=== PATIENT | male | born 1980 | race Caucasian/White ===

== ENCOUNTER 2022-01-21 21:21 | Observation (INO) | payer BC, SELFPAY ==
--- NOTE | ~2022-01-21 | XR_ITS ---
EXAMINATION: XR chest 1V portable Exam Date/Time: 01/21/2022 21:45 CDT CLINICAL HISTORY: INCREASED HR,SOB, TODAY Comparison: 09/25/2019. RESULT: Lines, tubes, and devices: None. Lungs and pleura: Clear. Cardiomediastinal silhouette: Stable cardiomediastinal silhouette. Other: No acute osseous or upper abdominal finding. IMPRESSION: No acute cardiopulmonary process Reviewed, dictated and finalized at location K.
[2022-01-21 21:22] VITALS: BP 181/89; PULSE 118; RESP 18; TEMP 36.3; O2SAT 98
--- NOTE | 2022-01-21 21:23 | ECG_ITS ---
Measurements Intervals [place] Rate: 132 P: [place]: 0 QRS: 83 QRSD: 87 T: -14 QT: 278 QTc: 412 Interpretive Statements ATRIAL FIBRILLATION WITH RAPID VENTRICULAR RESPONSE NONSPECIFIC ST & T-WAVE ABNORMALITY Electronically Signed On 01-22-2022 11:11:17 CDT by Flako Madrid M.D.
--- NOTE | 2022-01-21 21:40 | PC.NURSE ---
vrbo cardizem 10mg iv push x 1 dose.
[2022-01-21] MEDS: dilTIAZem HCl INJ 25 MG/5 ML VIAL 10 MG IV PUSH (21:42)
--- NOTE | 2022-01-21 21:45 | ED.ARRPALP ---
HPI - Arrhythmia/Palpitations General Chief Complaint: Arrhythmia/Palpitations Stated Complaint: hr fast x 20 min. Time Seen by Provider: 01/21/22 21:32 Source: patient and family Mode of arrival: ambulatory Limitations: no limitations History of Present Illness HPI narrative: 41-year-old male with no significant past medical history presented to the emergency department for evaluation of a rapid heart rate. Patient states he was at home and had just finished cleaning the basement when he had onset of rapid heart rate. Patient did have some dizziness and lightheadedness associated with it. Patient denied any chest pain. Patient has no prior history of atrial fibrillation. Patient states that he has had intermittent racing heart rate but that is usually short lasting and has never had any work-up for this. Patient denies any prior cardiac history. She denies any change in medications. Patient states he does drink caffeine in the morning but had no increased caffeine intake today. Patient denies taking any energy drinks. Patient denies any recreational drug use. Related Data Home Medications Medication Instructions Recorded Confirmed No Home Medications 01/21/22 01/21/22 Allergies Allergy/AdvReac Type Severity Reaction Status Date / Time No Known Allergies Allergy Verified 01/22/22 01:28 Review of Systems Review of Systems: CONSTITUTIONAL: Denies fever, chills, or sweats. EYES: Denies visual changes, redness, or discharge. ENT: Denies rhinorrhea, congestion, sore throat, or otalgia. CARDIOVASCULAR: Heart palpitations RESPIRATORY: Denies cough or dyspnea. GASTROINTESTINAL: Denies abdominal pain, nausea, vomiting, or diarrhea. GENITOURINARY: Denies dysuria or hematuria. SKIN: Denies rash or itching. MUSCULOSKELETAL: Denies back pain, joint pain, or myalgia. NEUROLOGIC: Associated dizziness and lightheadedness All systems reviewed & are unremarkable except as noted in HPI and below PMFSH Family History Family History Father Family history of heart disease in male family member before age 55 Hypertension TIA (transient ischemic attack) Social History Social History Smoking packs per day: 0.5 Smoking cigarettes per day: 10.0 Years smoked: 2 Smoking pack-years: 1.00 Smoking status: Former smoker Tobacco type: cigarettes Alcohol intake: never Substance use: former Substance use type: marijuana Last use: 20 years ago Spiritual care concerns: No Exam Narrative: APPEARANCE: Well appearing, no pain, no distress, well-nourished. HEAD: normocephalic, atraumatic. EYES: PERRLA/EOMI, conjunctivae clear. NOSE: Normal no drainage RESPIRATORY: Airway patent, respirations nonlabored. Clear to auscultation bilaterally, no rales, rhonchi, wheezing. CARDIOVASCULAR: Atrial fibrillation with RVR heart rate of 130s ABDOMINAL: Soft, nontender, nondistended, normal bowel sounds MUSCULOSKELETAL: Moves all extremities. Strength/ROM intact, No edema, No calf tenderness. NEURO: Alert. Cranial nerves II through XII intact. Grossly intact SKIN: Warm, dry. Normal Color PSYCHIATRIC: Anxious in appearance Course Course Emergency Course: Patient was started on Cardizem bolus of 10 mg and was started on a 5 mg/h Cardizem infusion. Patient was also treated with 1 L of normal saline. Patient was observed in the emergency department but did not convert back to normal sinus rhythm. Case was discussed with the hospitalist and patient was admitted to the IMU. Patient and family were updated on the results of the work-up and plan for admission. All questions and concerns were addressed. Patient was stable at time of admission. Vital Signs Vital signs: Vital Signs Temperature 97.4 F L 01/21/22 21:22 Pulse Rate 118 H 01/21/22 21:22 Respiratory Rate 18 01/21/22 21:22 Blood Pressure 181/89 H 01/21/22 21:22 Pulse Oximetry 98 01/21/22 21:22 Temper
[2022-01-21 21:53] LABS: Basophils Absolute Auto 0.1 K/mm3 (0.0-0.1); Basophils Percent Auto 0.6 % (0.2-1.2); Eosinophils Absolute Auto 0.4 K/mm3 (0-0.3); Eosinophils Percent Auto 5.1 % (0-4.4); Hematocrit 49.1 % (42.0-52.0); Hemoglobin 16.3 g/dL (14.0-18.0); Immature Granulocyte Absolute 0.03 K/mm3 (0.00-0.031); Immature Granulocyte Percent A 0.4 % (0-0.5); Lymphocytes Absolute Auto 2.66 K/mm3 (0.9-3.2); Lymphocytes Percent Auto 31.5 % (18.3-44.2); Mean Corpuscular HGB Conc 33.2 g/dl (32-36); Mean Corpuscular Hemoglobin 29.8 pg (26-34); Mean Corpuscular Volume 89.8 fl (80-100); Mean Platelet Volume 9.6 fl (7.4-10.4); Monocytes Absolute Auto 0.5 K/mm3 (0.1-0.6); Monocytes Percent Auto 5.9 % (2.6-8.5); Neutrophils Absolute Auto 4.8 K/mm3 (1.3-6.7); Neutrophils Percent Auto 56.5 % (45.5-73.1); Platelet Count Result 230 k/mm3 (150-375); Red Blood Count 5.47 M/mm3 (4.6-6.20); Red Cell Distribution Width 12.2 % (11.5-14.5); White Blood Count 8.4 K/mm3 (4.5-10.0)
[2022-01-21 22:04] LABS: Alanine Aminotransferase 25 U/L (4-50); Alkaline Phosphatase 105 U/L (38-126); Anion Gap 10 mmol/L (8-16); Aspartate Amino Transferase 38 U/L (17-59); Bilirubin,Total 0.4 mg/dL (0.2-1.3); Blood Urea Nitrogen 19 mg/dL (9-20); Calcium 9.4 mg/dL (8.4-10.2); Carbon Dioxide 26 mmol/L (22-30); Chloride 103 mmol/L (98-107); Estimated CRCL calculation 86 ml/min; Estimated Glomerular Filt Rate > 60; Glucose 112 mg/dL (65-110); Lipase 133 U/L (23-300); Potassium 3.9 mmol/L (3.4-5.0); Sodium 139 mmol/L (137-145)
[2022-01-21 22:05] LABS: Prothrombin Time 12.4 Seconds (11.1-14.7)
[2022-01-21 22:06] LABS: Partial Thromboplastin Time 26.1 SECONDS (22.3-36.8)
[2022-01-21 22:14] LABS: Troponin I < 0.012 ng/mL (0.000-0.034)
[2022-01-21 22:34] VITALS: BP 134/90; PULSE 109
[2022-01-21] MEDS: dilTIAZem 100 MG/100 ML 100 MG/100 ML BAG IV CONT (22:34)
[2022-01-22] VITALS (14 sets, daily range): BP systolic 129–146; BP diastolic 66–107; PULSE 63–93; RESP 12–18; TEMP 36.3–36.9; O2SAT 96–100; BMI 23.8
--- NOTE | 2022-01-22 | ECHO_ITS ---
Patient Info Name: Narendra Shipley Age: 41 years : 1980 Gender: Male Ht: 72 in Wt: 175 lbs BSA: 2.01 m2 HR: 65 bpm BP: 129 / 83 mmHg Heart Rhythm: Sinus Rhythm Exam Date: 01/22/2022 9:26 AM Exam Location: [facility] Pulmonary Patient Status: Inpatient Admit Date: 01/21/2022 Staff Ordering Physician: Tiffanie Cordon DO Continuous Vulcanizing Machine Operator: José Miguel Pérez RDCS, RT Attending Provider: Tiffanie Cordon DO Referring Physician: Bravo TATUM; Exam Type: CA echo doppler color flow Study Info Indications I48.0 - Paroxysmal atrial fibrillation Complete two-dimensional, color flow and Doppler transthoracic echocardiogram is performed. Strain analysis performed. Summary 1. Complete two-dimensional, color flow and Doppler transthoracic echocardiogram is performed. 2. Left ventricular chamber dimension is normal. 3. Left ventricular systolic function is normal, estimated at 60-65%. 4. There is no increased left ventricular wall thickness. 5. Global longitudinal strain is borderline at -18 %. 6. The left ventricular diastolic function is normal. 7. There is trace mitral valve regurgitation. 8. There is no aortic valve stenosis. Left Ventricle Left ventricular chamber dimension is normal. Left ventricular systolic function is normal, estimated at 60-65%. There is no increased left ventricular wall thickness. The left ventricular diastolic function is normal. Global longitudinal strain is borderline at -18 %. Right Ventricle Right ventricular chamber dimension is normal. Right ventricular systolic function is normal. Left Atria Left atrial chamber dimension is normal. Right Atria Right atrial chamber dimension is normal. Aortic Valve The aortic valve is probable trileaflet. There is no aortic valve stenosis. There is no aortic valve regurgitation. Pulmonic Valve The pulmonic valve is not well visualized. There is trace pulmonic regurgitation. Mitral Valve The mitral valve has normal leaflets. There is trace mitral valve regurgitation. Tricuspid Valve The tricuspid valve leaflets are normal. There is trace tricuspid valve regurgitation. Unable to estimate PA systolic pressure due to poor spectral resolution of tricuspid regurgitant jet velocity. Pericardium/Pleural The pericardium appears normal. There is no pericardial effusion. Inferior Vena Cava Normal inferior vena cava with >50% collapse upon inspiration consistent with normal right atrial pressure, 5 mmHg. Aorta The aortic root size at the sinus of Valsalva is normal. Left Ventricular Outflow Tract Name Value Normal LVOT 2D LVOT Diameter 2.0 cm LVOT Doppler LVOT Peak Gradient 4 mmHg LVOT Mean Gradient 2 mmHg LVOT VTI 19 cm LVOT VTI/AV VTI Ratio 0.8 LVOT Stroke Volume 61 ml LVOT CO 4.3 l/min LVOT CI 2.1 l/min/m2 Mitral Valve
--- NOTE | 2022-01-22 00:59 | ECG_ITS ---
Measurements Intervals [place] Rate: 93 P: [place]: 0 QRS: 71 QRSD: 93 T: 8 QT: 320 QTc: 398 Interpretive Statements ATRIAL FIBRILLATION Electronically Signed On 01-22-2022 11:12:46 CDT by Flako Madrid M.D.
[2022-01-22 01:04] LABS: Troponin I < 0.012 ng/mL (0.000-0.034)
--- NOTE | 2022-01-22 01:20 | ADMGEN ---
This patient, Narendra Shipley, was admitted to IMU Room 212-01 on 01/22/22 at 0106. Patient/family oriented to hospital policies and general routines including ID bracelet, bed and alarms, visiting hours, pain management, procedures, bathroom and other care routines, personal items, smoking policy, room service/diet, and visiting hours. Information on how to activate the Rapid Response Team has been discussed. Patient/Family are encouraged to report perceived risks to care and to ask questions if they do not understand what they are told or what they should do.
[2022-01-22] MEDS: ENOXAPARIN 100 MG/ML SYRINGE 83 MG SUB-Q (02:00)
--- NOTE | 2022-01-22 03:32 | ECG_ITS ---
Measurements Intervals [place] Rate: 73 P: 33 MD: 155 QRS: 74 QRSD: 91 T: 13 QT: 340 QTc: 375 Interpretive Statements SINUS RHYTHM COMPARED TO ECG 01/22/2022 01:51:18 SINUS RHYTHM NOW PRESENT Electronically Signed On 01-22-2022 11:13:15 CDT by Flako Madrid M.D.
[2022-01-22 03:41] LABS: Troponin I < 0.012 ng/mL (0.000-0.034)
--- NOTE | 2022-01-22 05:14 | PM.IMHP ---
H&P: HPI History of Present Illness Date/Time: 01/22/22 05:14 Chief Complaint: Increased heart rate Narrative: 41-year-old male with a past medical history of borderline hypertension and anxiety who presented to the ER from home due to elevated heart rate. The patient reports that he was down in the basement moving things around when he began having heart racing. His Apple watch that his heart rate was 160-170. He reported feeling a fluttering sensation in his epigastric region. He did not have any chest pain or shortness of breath. He thought that he may be little bit anxious and sat down and tried to calm down but his heart rate did not improve. He did have some associated lightheadedness. He denied any chest pain. He does not have a history of atrial fibrillation. He has noticed an intermittent history of heart racing having usually last for several minutes at a time but had not had a workup for this. He assumed that that was due to anxiety. He does drink about 412 oz cups of coffee a day but has not had any recent increasing caffeine. He does not drink any energy drinks. He does drink heavily about once a month usually between 6-8 beers. He last drank this past weekend. He reports that several months ago his blood pressure was running towards the 130s to 140s. He discussed with his primary care doctor and he had made some lifestyle changes and was exercising more. Since that time his blood pressures have been running in the 120s to 130s. In the ER the patient's blood pressure was initially elevated to the 180s but improved down to the 130s without intervention. He does snore but reports feeling relatively well rested. Review of Systems Review of Systems: 12 systems were reviewed with pertinent positives and negatives per HPI. Except as documented in the HPI, all other systems were reviewed and are negative. [facility] Past Medical History Medical History (Updated 01/22/22 @ 05:25 by Tiffanie Cordon DO) Anxiety Elevated blood pressure reading Surgical History Surgical History (Updated 01/22/22 @ 05:25 by Tiffanie Cordon DO) Benign skin mole Benign skin moles resected Family History Family History (Updated 01/22/22 @ 07:16 by Tiffanie Cordon DO) Father Hypertension TIA (transient ischemic attack) Social History Social History (Updated 01/22/22 @ 07:17 by Tiffanie Cordon DO) Social History: He lives with his of 18 years. They have 3 children. He drinks on occasion in moderation for the most part but once a month will drink heavier up to 6 date alcoholic beverages at a time. He smoked briefly for a couple of years in his early 20s. He denies any illicit substance use. He works in finance. Smoking packs per day: 0.5 Smoking cigarettes per day: 10.0 Years smoked: 2 Smoking pack-years: 1.00 Smoking status: Former smoker Tobacco type: cigarettes Alcohol intake: never Substance use: former Substance use type: marijuana Last use: 20 years ago Additional living arrangements comments: He lives at home with his . Spiritual care concerns: No Meds Home Medications and Allergies Home Medications Medication Instructions Recorded Confirmed Type No Home Medications 01/21/22 01/21/22 History Allergies Allergy/AdvReac Type Severity Reaction Status Date / Time No Known Allergies Allergy Verified 01/22/22 01:28 Vital Signs Vital Signs - 24 hr 01/21/22 21:22 01/21/22 22:34 01/22/22 00:50 Temperature 97.4 F L Pulse Rate 118 H 109 H 92 Respiratory Rate 18 12 Blood Pressure 181/89 H 134/90 137/101 H Pulse Oximetry 98 96 01/22/22 00:51 01/22/22 01:10 01/22/22 01:15 Temperature 97.7 F Pulse Rate 89 75 75 Respiratory Rate 15 18 18 Blood Pressure 137/101 H 146/107 H Pulse Oximetry 98 100 100 01/22/22 02:00 01/22/22 02:26 01/22/22 04:00 Temperature 98.5 F Pulse Rate 91 93 73 Respiratory Rate 18 Blood Pressure 129/83 Pu
[2022-01-22] MEDS: dilTIAZem HCL CD 180 MG CAP.ER.24H PO (06:45)
[2022-01-22] MEDS: ASPIRIN 81 MG CHEWABLE TABLET PO (09:32)
--- NOTE | 2022-01-22 15:32 | PM.DS ---
DS: Admitting Diagnosis Discharge Date 01/22/22 Admitting Diagnosis Fast heart rate DS: Discharge Diagnosis Discharge Diagnosis (1) Paroxysmal atrial fibrillation with rapid ventricular response: Code(s): I48.0 - Paroxysmal atrial fibrillation Status: Acute (2) Elevated blood pressure reading: Code(s): R03.0 - Elevated blood-pressure reading, without diagnosis of hypertension Status: Inactive DS: Summary Hospital Course Reason for hospitalization: 41yo male here for elevated heart rate and found to have atrial fibrillation. Please see H&P for details Hospital Course: EKG on admission showed AFib with RVR rate 132. He did have nonspecific ST T wave changes noted. Cbc was normal except for a mild elevation of eosinophil count. CMP was normal. TSH was normal. Troponins negative x3. PT, PTT were normal and D-dimer was negative. Chest x-ray was clear. Echocardiogram showed EF of 60-65% and trace mitral regurgitation. Patient was given IV diltiazem 10 mg x 1. He converted to normal sinus rhythm. Following morning he was started on Cardizem CD daily. He has maintained normal sinus rhythm. Discussed with Cardiology who agrees to see the patient follow-up as an outpatient. Patient was advised to cut back his caffeine use and to stop drinking alcohol at this time. He is also advised to have light activity and no straining until seen by transit proof machine operator. Status at Discharge Cognitive/behavioral status at discharge: Stable Time Spent with Patient Time attestation: Total time spent providing and/or coordinating discharge services: 35 minutes Time spent: Greater than 30 minutes Exam Narrative: AF 97.8 138/66 72 16 98%ra Gen - NARD Chest - CTA bilaterally, nml RR CV - RRR S1/S2. Telemetry showing normal sinus rhythm Abd - Soft, NT/ND, Positive BS Ext - No pedal edema Neuro - Alert and oriented. Nonfocal exam. Psych - Nml mood and affect Skin - Warm and dry DS: Data Data Completed and Pending Labs on day of discharge: Labs from last 24 hours 01/22/22 01/22/22 01/22/22 14:30 03:11 00:34 WBC RBC Hgb Hct MCV MCH MCHC RDW Plt Count MPV Immature Gran % (Auto) Neut % (Auto) Lymph % (Auto) [place] % (Auto) Eos % (Auto) Baso % (Auto) Lymph # (Auto) [place] # (Auto) Eos # (Auto) Baso # (Auto) Abs Immat Gran (auto) Absolute Neuts (auto) Absolute Nucleated RBC Nucleated RBC % PT INR APTT D-Dimer 0.20 Sodium Potassium Chloride Carbon Dioxide Anion Gap BUN Creatinine Estim Creat Clear Calc Estimated GFR Glucose Calcium Magnesium Total Bilirubin AST ALT Alkaline Phosphatase Troponin I < 0.012 < 0.012 Total Protein Albumin Lipase TSH 01/21/22 01/21/22 01/21/22 21:45 21:45 21:45 WBC RBC Hgb Hct MCV MCH MCHC RDW Plt Count MPV Immature Gran % (Auto) Neut % (Auto) Lymph % (Auto) [place] % (Auto) Eos % (Auto) Baso % (Auto) Lymph # (Auto) [place] # (Auto) Eos # (Auto) Baso # (Auto) Abs Immat Gran (auto) Absolute Neuts (auto) Absolute Nucleated RBC Nucleated RBC % PT 12.4 INR 1.0 APTT 26.1 D-Dimer Sodium 139 Potassium 3.9 Chloride 103 Carbon Dioxide 26 Anion Gap 10 BUN 19 Creatinine 1.10 Estim Creat Clear Calc 86 Estimated GFR > 60 Glucose 112 H Calcium 9.4 Magnesium 2.0 Total Bilirubin 0.4 AST 38 ALT 25 Alkaline Phosphatase 105 Troponin I < 0.012 Total Protein 8.0 Albumin 5.0 Lipase 133 TSH 3.150 01/21/22 21:45 WBC 8.4 RBC 5.47 Hgb 16.3 Hct 49.1 MCV 89.8 MCH 29.8 MCHC 33.2 RDW 12.2 Plt Count 230 MPV 9.6 Immature Gran % (Auto) 0.4 Neut % (Auto) 56.5 Lymph % (Auto) 31.5 [place] % (Auto) 5.9 Eos % (Auto) 5.1 H Baso % (Auto)
== END 2022-01-22 17:03 | disposition home or self-care (01) ==
LOC: ANHED 23:09 → ANHIMU 01-22 01:43
PROVIDERS: Admitting Provider Internal Medicine; Emergency Provider Emergency Medicine; PCP Family Medicine; Visit Provider Internal Medicine
DX: I48.0 Paroxysmal atrial fibrillation (principal); R03.0 Elevated blood-pressure reading, without diagnosis of hypertension; Z87.891 Personal history of nicotine dependence
CPT/HCPCS: 36415; 71045; 80053; 83690; 83735; 84443; 84484; 85025; 85380; 85610; 85730; 93005; 93306; 96365; 96366; 96372; 96376; 99285; A9270; G0378; J1650

== ENCOUNTER 2024-11-15 13:11 | Emergency (ER) | payer BC, SELFPAY ==
[2024-11-15 13:22] VITALS: BP 137/83; PULSE 91; RESP 18; TEMP 36.4; O2SAT 98
--- OUTSIDE RECORDS SUMMARY | 2024-11-15 13:28 | XMS_ITS | Clinical Summary ---
Author Organization [facility] Address [address] [place] [id number] Care Team Providers Care Repulping Supervisor Name Role Phone Non-Staff, Provider Primary Care Provider Fredo jimenez Social History Tobacco Use Types Packs/Day Years Used Date Smoking Tobacco: Never Assessed Sex and Gender Information Value Date Recorded Sex Assigned at Not on file Legal Sex Male 8:34 PM CDT Gender Identity Not on file Sexual Orientation Not on file Plan of Treatment Upcoming Encounters Date Type Department Care Team (Late st Contact Info) Description 11/17/2024 8:00 AM HAIR SAMPLE MATCHER Office Visit [facility] - [place] [address] [facility] [facility] [address] [place] [address] [phone] Katey Bunn MD [address] [facility] [facility] [address] [place] [address] [phone] Health Maintenance Due Date Last Done Comments Annual Physical 1983 Hepatitis C 1998 DTaP, Tdap and Td Vaccines ( 1 - Tdap) 1999 Hepatitis B Vaccines (1 of 3 - 19+ 3-dose series) 1999 COVID-19 Vaccine (2023-2 5 season) 2024 09/26/2021, 12/20/2020 Influenza Adult (#1) 2024 07/10/2020, 06/29/2018 HPV Vaccines Aged Out No longer eligi ble based on patient's age to complete this topic Meningococcal B Vaccine Aged Out No l onger eligible based on patient's age to complete this topic Meningococcal Vaccine Aged Out No lacey laura eligible based on patient's age to complete this topic Pneumococcal Vaccine: Pediatrics (0 to 5 Years) and At-Risk Patients (6 to 64 Years) Aged Out No longer eligible b ased on patient's age to complete this topic RSV Immunizations Under 20 Months Aged Out No longer eligible b ased on patient's age to complete this topic Insurance [facility] Care Teams Repulping Supervisor Relationship Specialty Start Date End Date Non-Staff, Provider PCP - General UNKNOWN PHYSICIAN SPECIALTY 09/16/23
--- OUTSIDE RECORDS SUMMARY | 2024-11-15 13:28 | XMS_ITS | Data Portability ---
Author Organization [place] [facility], Main Office Address [address] [place] [address] Assessment Encounter Date Assessment Date Assessment LastModified by Organization Details LastModified Time 07/10/2023 07/10/2023 He will journal the headaches and the exercise more vigantly Return 4 months [email or web address] Not available 07/10/2023 21:27:50 Plan of Treatment Reminders Order Date Submit Date Provider Last Modified By Organization Details Last Modified Time Details Appointments None record ed. Lab None record ed. Referral None record ed. Procedures None record ed. Surgeries None record ed. Imaging None record ed. Medication Orders None record ed. Patient TargetsNo targets recorded. Patient InstructionsNo instructions recorded. Reason for Referral None Reported. Results Created Date Observation Date Name Description Value Unit Range Abnormal Flag Note LastModifiedBy Organization Detail LastModifiedTime 09/19/20 22 09/19/2022 LIPID PANEL cholesterol 174 mg/dL 140-19 9 NIH JAZMÍN NSUS RECOM MENDA TION FOR WAQAS STERO L: ADULT CHILD LOW RISK: <200 <170 BORDE RLINE : <200- 239 ----- HIGH RISK: >240 >200 Not Available [facility] (Lab) [address] [place], [address], 09/19/2022 21:40:04 09/19/20 22 09/19/2022 LIPID PANEL triglyceride s 152 mg/dL 0-150 high NIH JAZMÍN NSUS REPOR T RECOM MENDA TION FOR TRIGL YCERI VIOLET: ADULT CHILD LOW RISK: <150 ----- BODER LINE: 150-1 99 ----- HIGH RISK: >200 ----- Not Available [facility] (Lab) [address] [place], [address], 09/19/2022 21:40:04 09/19/20 22 09/19/2022 LIPID PANEL HDL cholesterol 36 mg/dL 40- low Not Available [facility] (Lab) [address] [place], [address], 09/19/2022 21:40:04 09/19/20 22 09/19/2022 LIPID PANEL LDL cholesterol, calculated 108 mg/dL 0-130 NIH JAZMÍN NSUS REPOR T RECOM MENDA TIONS FOR LDL: ADULT CHILD LOW RISK <130 <110 (OPTI MAL LDL) <100 ----- BORDE RLINE : 130-1 59 ----- HIGH RISK: >160 >130 A TRIGL YCERI DE RESUL T >400 INVAL IDATE S THE CALCU LATIO N FOR LDL FRACT IONAT ION - THE LDL RESUL T WILL NOT BE REPOR ARMAAN. Not Available [facility] (Lab) [address] [place], [address], 09/19/2022 21:40:04 09/19/20 22 09/19/2022 COMPR EHENS AIDEE METAB OLIC PANEL sodium 138 mmol/ L 137-14 5 Not Available [facility] (Lab) [address] [place], [address], 09/19/2022 21:39:59 09/19/20 22 09/19/2022 COMPR EHENS AIDEE METAB OLIC PANEL potassium 3.9 mmol/ L 3.5-5. 1 Not Available [facility] (Lab) [address] [place], [address], 09/19/2022 21:39:59 09/19/20 22 09/19/2022 COMPR EHENS AIDEE METAB OLIC PANEL chloride 103 mmol/ L 98-107 Not Available [facility] (Lab) [address] [place], [address], 09/19/2022 21:39:59 09/19/20 22 09/19/2022 COMPR EHENS AIDEE METAB OLIC PANEL carbon dioxide 25 mmol/ L 22-30 Not Available [facility] (Lab) [address] [place], [address], 09/19/2022 21:39:59 09/19/20 22 09/19/2022 COMPR EHENS AIDEE METAB OLIC PANEL anion gap 13.9 mmol/ L 14-22 low Not Available [facility] (Lab) [address] [place], [address], 09/19/2022 21:39:59 09/19/20 22 09/19/2022 COMPR EHENS AIDEE METAB OLIC PANEL glucose 100 mg/dL 70-99 high Not Available [facility] (Lab) [address] [place], [address], 09/19/2022 21:39:59 09/19/20 22 09/19/2022 COMPR EHENS AIDEE METAB OLIC PANEL BUN 12 mg/dL 8-19 Not Available [facility] (Lab) [address] [place], [address], 09/19/2022 21:39:59 09/19/20 22 09/19/2022 COMPR EHENS AIDEE METAB OLIC PANEL creatinine 0.88 mg/dL 0.66-1 .25 Not Available [facility] (Lab) [address] [place], [address], 09/19/2022 21:39:59 09/19/20 22 09/19/2022 COMPR EHENS AIDEE METAB OLIC PANEL GFR >60 Refer ence Range : [place] ge GFR Healt hy Adult : >60 mL/mi n/1.7 3 m2 Chron ic Kidne y Disea se: 15-60 mL/mi n/1.7 3 m2 Kidne y Failu re: <15/m L/min /1.73 m2 www.n iddk. nih.g ov The MDRD study equat ion has not been valid ated in child marquita <18 years of age; pregn ant women ; the elder ly >85 years of age; or in some racia l or ethni c subgr oups, such as Hispa nics. Outsi de the valid ated lis eters , estim ated GFR is less accur ate, requi ring clini yousif judgm ent on a case- by-ca se basis . Clini yousif inter preta tion for other races and ages must be made by the clini sha. The MDRD study equat ion has not been valid ated for the evalu ation of serum creat inine relat ed to nutri dwayne l statu s or medic ation usage . For perso ns <18 years of age, a pedia tric GFR calcu lator is avail able on the [facility] websi te: https ://anjana dia.allegra german.o roberto/pr ofess ional s/kdo qi/gf r_cal culat or Not Available [facility] (Lab) [address] [place], [address], 09/19/2022 21:39:59 09/19/20 22 09/19/2022 COMPR EHENS AIDEE METAB OLIC PANEL alkaline phosphatase 92 U/L 38-126 Not Available [facility] (Lab) [address] [place], [address], 09/19/2022 21:39:59 09/19/20 22 09/19/2022 COMPR EHENS AIDEE METAB OLIC PANEL alanine aminotransfe rase 28 U/L 0-50 Not Available [facility] (Lab) [address] [place], [address], 09/19/2022 21:39:59 09/19/20 22 09/19/2022 COMPR EHENS AIDEE METAB OLIC PANEL aspartate aminotransfe rase 32 U/L 15-46 Not Available [facility] (Lab) [address] [place], [address], 09/19/2022 21:39:59 09/19/20 22 09/19/2022 COMPR EHENS AIDEE METAB OLIC PANEL bilirubin, total 0.80 mg/dL 0.20-1 .30 Not Available [facility] (Lab) [address] [place], [address], 09/19/2022 21:39:59 09/19/20 22 09/19/2022 COMPR EHENS AIDEE METAB OLIC PANEL calcium 9.1 mg/dL 8.4-10 .2 Not Available [facility] (Lab) [address] [place], [address], 09/19/2022 21:39:59 09/19/20 22 09/19/2022 COMPR EHENS AIDEE METAB OLIC PANEL total protein 7.5 g/dL 6.3-8. 2 Not Available [facility] (Lab) [address] [place], [address], 09/19/2022 21:39:59 09/19/20 22 09/19/2022 COMPR EHENS AIDEE METAB OLIC PANEL albumin 4.6 g/dL 3.4-5. 0 Not Available [facility] (Lab) [address] [place], [address], 09/19/2022 21:39:59 09/19/20 22 09/19/2022 COMPR EHENS AIDEE METAB OLIC PANEL globulin 2.9 g/dL 2.6-4. 2 Not Available [facility] (Lab) [address] [place], [address], 09/19/2022 21:39:59 09/19/20 22 09/19/2022 COMPR EHENS AIDEE METAB OLIC PANEL A/G ratio 1.6 ratio 1.0-2. 0 Not Available [facility] (Lab) [address] [place], [address], 09/19/2022 21:39:59 09/19/20 22 09/19/2022 URINE MICRO SCOPI C EXAM/ IRIS white blood cells 0-8 /i??h pfi?? 0-8 Not Available [facility] (Lab) [address] [place], [address], 09/19/2022 20:38:43 09/19/20 22 09/19/2022 URINE MICRO SCOPI C EXAM/ IRIS red blood cells 0-4 /i??h pfi?? 0-4 Not Available [facility] (Lab) [address] [facility] [place], [address], 09/19/2022 20:38:43 09/19/20 22 09/19/2022 URINE MICRO SCOPI C EXAM/ IRIS bacteria none Not Available [facility] (Lab) [address] [facility] [place], [address], 09/19/2022 20:38:43 09/19/20 22 09/19/2022 URINE MICRO SCOPI C EXAM/ IRIS mucous few /i??l pfi?? abnormal Not Available [facility] (Lab) [address] [place], [address], 09/19/2022 20:38:43 09/19/20 22 09/19/2022 URINE MICRO SCOPI C EXAM/ IRIS squamous epithelial none /i??l pfi?? Not Available [facility] (Lab) [address] [place], [address], 09/19/2022 20:38:43 09/19/20 22 09/19/2022 URINE MICRO SCOPI C EXAM/ IRIS hyaline cast occasi onal /i??l pfi?? none seen- abnormal Not Available [facility] (Lab) [address] [place], [address], 09/19/2022 20:38:43 09/19/20 22 09/19/2022 CBC/C OMPLE TE BLD COUNT W/DIF F white blood cells 5.7 x10'3 /uL 4.2-10 .8 Not Available [facility] (Lab) [address] [place], [address], 09/19/2022 20:24:36 09/19/20 22 09/19/2022 CBC/C OMPLE TE BLD COUNT W/DIF F red blood cells 5.12 x10'6 /uL 4.10-5 .80 Not Available [facility] (Lab) [address] [place], [address], 09/19/2022 20:24:36 09/19/20 22 09/19/2022 CBC/C OMPLE TE BLD COUNT W/DIF F hemoglobin 15.3 g/dL 13.2-1 7.0 Not Available [facility] (Lab) [address] [place], [address], 09/19/2022 20:24:36 09/19/20 22 09/19/2022 CBC/C OMPLE TE BLD COUNT W/DIF F hematocrit 44.9 % 39.3-5 0.0 Not Available [facility] (Lab) [address] [place], [address], 09/19/2022 20:24:36 09/19/20 22 09/19/2022 CBC/C OMPLE TE BLD COUNT W/DIF F mean red cell volume 87.7 fL 80.0-9 7.0 Not Available [facility] (Lab) [address] [place], [address], 09/19/2022 20:24:36 09/19/20 22 09/19/2022 CBC/C OMPLE TE BLD COUNT W/DIF F mean red cell hemoglobin 29.9 pg 27.0-3 3.0 Not Available [facility] (Lab) [address] [place], [address], 09/19/2022 20:24:36 09/19/20 22 09/19/2022 CBC/C OMPLE TE BLD COUNT W/DIF F mean RBC HGB concentratio n 34.1 g/dL 31.0-3 6.0 Not Available [facility] (Lab) [address] [place], [address], 09/19/2022 20:24:36 09/19/20 22 09/19/2022 CBC/C OMPLE TE BLD COUNT W/DIF F red cell distribution width 12.0 % 11.8-1 5.5 Not Available [facility] (Lab) [address] [place], [address], 09/19/2022 20:24:36 09/19/20 22 09/19/2022 CBC/C OMPLE TE BLD COUNT W/DIF F platelets 200 x10'3 /uL 150-40 0 Not Available [facility] (Lab) [address] [place], [address], 09/19/2022 20:24:36 09/19/20 22 09/19/2022 CBC/C OMPLE TE BLD COUNT W/DIF F mean platelet volume 9.9 fL 9.0-12 .4 Not Available [facility] (Lab) [address] [place], [address], 09/19/2022 20:24:36 09/19/20 22 09/19/2022 CBC/C OMPLE TE BLD COUNT W/DIF F neutrophils 65.3 % 39.0-7 2.0 Not Available [facility] (Lab) [address] [place], [address], 09/19/2022 20:24:36 09/19/20 22 09/19/2022 CBC/C OMPLE TE BLD COUNT W/DIF F lymphocytes 23.9 % 16.0-4 7.0 Not Available [facility] (Lab) [address] [place], [address], 09/19/2022 20:24:36 09/19/20 22 09/19/2022 CBC/C OMPLE TE BLD COUNT W/DIF F monocytes 8.5 % 5.0-12 .0 Not Available [facility] (Lab) [address] [place], [address], 09/19/2022 20:24:36 09/19/20 22 09/19/2022 CBC/C OMPLE TE BLD COUNT W/DIF F eosinophils 1.4 % 1.0-7. 0 Not Available [facility] (Lab) [address] [place], [address], 09/19/2022 20:24:36 09/19/20 22 09/19/2022 CBC/C OMPLE TE BLD COUNT W/DIF F basophils 0.5 % 0.0-2. 0 Not Available [facility] (Lab) [address] [place], [address], 09/19/2022 20:24:36 09/19/20 22 09/19/2022 CBC/C OMPLE TE BLD COUNT W/DIF F immature granulocytes 0.4 % 0.00-0 .50 Not Available [facility] (Lab) [address] [place], [address], 09/19/2022 20:24:36 09/19/20 22 09/19/2022 CBC/C OMPLE TE BLD COUNT W/DIF F neutrophils, absolute count 3.70 x10'3 /uL 1.5-8. 0 Not Available [facility] (Lab) [address] [place], [address], 09/19/2022 20:24:36 09/19/20 22 09/19/2022 CBC/C OMPLE TE BLD COUNT W/DIF F lymphocytes, absolute count 1.35 x10'3 /uL 1.07-3 .43 Not Available [facility] (Lab) [address] [place], [address], 09/19/2022 20:24:36 09/19/20 22 09/19/2022 CBC/C OMPLE TE BLD COUNT W/DIF F monocytes, absolute count 0.48 x10'3 /uL 0.29-0 .99 Not Available [facility] (Lab) [address] [place], [address], 09/19/2022 20:24:36 09/19/20 22 09/19/2022 CBC/C OMPLE TE BLD COUNT W/DIF F eosinophils, absolute count 0.08 x10'3 /uL 0.02-0 .53 Not Available [facility] (Lab) [address] [place], [address], 09/19/2022 20:24:36 09/19/20 22 09/19/2022 CBC/C OMPLE TE BLD COUNT W/DIF F basophils, absolute count 0.03 x10'3 /uL 0.01-0 .08 Not Available [facility] (Lab) [address] [place], [address], 09/19/2022 20:24:36 09/19/20 22 09/19/2022 CBC/C OMPLE TE BLD COUNT W/DIF F immature granulocytes ,absolute 0.02 x10'3 /uL 0.00-0 .05 Not Available [facility] (Lab) [address] [place], [address], 09/19/2022 20:24:36 09/19/20 22 09/19/2022 CBC/C OMPLE TE BLD COUNT W/DIF F nucleated red blood cells 0.0 % -0 Not Available [facility] (Lab) [address] [place], [address], 09/19/2022 20:24:36 09/19/20 22 09/19/2022 CBC/C OMPLE TE BLD COUNT W/DIF F NRBC# 0.00 x10'3 /uL Not Available [facility] (Lab) [address] [place], [address], 09/19/2022 20:24:36 10/14/19 23 10/10/2022 home sleep study No observ ation record ed. [id number] [facility] [address] [place], [address], 12/04/2022 16:26:56 10/14/19 23 10/10/2022 home sleep study No observ ation record ed. [id number] [facility] Orders [address] [place], [address], 12/04/2022 16:26:56 11/15/19 23 MRI, brain , w/wo contr ast [facility] [place] [address] [facility] [place] [address] [phone] Patien t Name: CELENARENDRA MOFFETT Access ion #: [id number] Sex: M : 1980 5 Locati on: RA2 Attend ing Physic tunde: MELISSA BYRD Orderi ng Physic tunde: MELISSA BYRD Exam Date: 023 7:55 AM Exam Name: MRI BRAIN W/WO Admitt ing Diagno sis(es ): RADIOL OGY REPORT - FINAL EXAM: MRI BRAIN W/WO HISTOR Y: dizzin ess COMPAR PB: None. TECHNI QUE: Dose: 17.0 ml Multih ance gadoli nium TECHNI QUE: Multip lanar multis equenc e contra st and noncon trast images are review ed. Images are review ed in the valenzuela l, sagitt al, and axial plane. Diffus ion-we ighted images are review ed. FINDIN GS: Brain: The ellington-w vikas matter differ entiat ion is within normal limits withou t enhanc ement. Of demyel inatin g proces s. No eviden ce of enceph alomal acia. No Page 1 of 3 [facility] Patibrent t Name: NARENDRA TRONCOSO Access ion #: [id number] Sex: M : 1980 5 Exam Date: 2/10/2 023 7:55 AM Exam Name: MRI BRAIN W/WO Admitt ing Diagno sis(es ): of pathol ogic eviden ce of infarc tion. No eviden ce of mass effect or cortic al atroph y. The diffus ion weight ed sequen clover are normal . The bilate ral 7/8 nerve comple x, brains tem and cerebe llum are grossl y normal . No areas Ventri cular system midlin e, normal size, normal develo pment. Osseou s: The calvar ium appear s normal . Sinuse s: Comple te opacif icatio n of the right maxill shantel sinus. Inflam matory change s of the right ethmoi d air cells and right spheno id air cells. Note is also made of promin ence of the inferi or nasal turbin ate on the right consid er rhinit is versus polypo id diseas e. Tempor al mastoi d air cells: Unrema rkable Extra- axial fluid space: Unrema rkable IMPRES CLAUDIO: 1. No acute intrac ranial proces s, see above. 1. Eviden ce of parana gwen sinusi tis inflam matory residu als. Create d and electr onical ly signed by: Yaya catherine MD Signed Date: 11:49 AM (CT) Dictat ed by: Yaya catherine MD Page 2 of 3 [facility] NARENDRA TRONCOSO Access ion #: [id number] Sex: M : 1980 5 Exam Date: 7:55 AM Exam Name: MRI BRAIN W/WO Admitt ing Diagno sis(es ): DD: 11:49 AM (CT) DT: 11:49 AM (CT) Page 3 of 3 [facility] [id number] [facility] (Imaging) [address] [place], [address], 12/04/2022 16:26:56 11/15/19 23 MRI, inter nal audit ory canal , w/wo contr ast [facility] [address] [place] [address] Blue t Name: NARENDRA TRONCOSO Access ion #: [id number] Sex: M : 1980 5 Locati on: RA2 Attend ing Physic tunde: MELISSA BYRD Orderi Physic tunde: MELISSA BYRD Exam Date: 023 7:55 AM Exam Name: MRI IACS W/WO Admitt ing Diagno sis(es ): RADIOL OGY REPORT - FINAL EXAM: MRI IACS W/WO HISTOR Y: dizzin ess COMPAR PB: None availa ble. TECHNI QUE: DOSE: 17.0ml Multih ance gadoli nium Multip lanar multis equenc e pre and post IV contra st images of the IACs were perfor med. FINDIN GS: No eviden ce of mass in the cerebe llopon roberta angle cister ns or internet merchant al audito ry canals . The fifth, sevent h, and eighth crania l nerves are symmet phuong withou t abnorm al thicke beverly. The cochle a and vestib ular aquedu cts appear Page 1 of 2 [facility] Blue t Name: NARENDRA TRONCOSO Access ion #: [id number] Sex: M : 1980 5 Exam Date: 023 7:55 AM Exam Name: MRI IACS W/WO Admitt ing Diagno sis(es ): normal and symmet phuong. No eviden ce of fluid or abnorm al signal in the middle ear spaces , mastoi d air cells, or housing development specialist al audito ry canals . The right maxill shantel sinus is comple tely opacif ied. Bilate ral ethmoi d sinus inflam matory change s noted. IMPRES CLUADIO: 1. Unrema rkable pre and post intrav enous examin ation of the internet merchant al audito ry canals . 2. Parana gwen sinusi tis residu als, see above. Create d and electr onical ly signed by: Yaya catherine MD Signed Date: 12:42 PM (CT) Dictat ed by: Yaya catherine MD DD: 12:42 PM (CT) DT: 12:42 PM (CT) Page 2 of 2 [id number] [facility] (Imaging) [address] [place], [address], 12/04/2022 16:26:56 Result Notes None recorded. Problems Name Problem SNOMED Code Status Onset Date Resolution Date Notes Provider Name and Address Organization Details Recorded Time Dizziness 074657143 Active 2022 Not Available [facility] 3 16:26:24 Atrial fibrillation 30458698 Active 2021 Not Available [facility] 3 16:26:24 Diarrhea 91680145 Active 2021 Not Available [facility] 3 16:26:24 Snoring 28381193 Active 2021 Not Available [facility] 3 16:26:24 Skin lesion 73095869 Active Not Available [facility] 3 16:26:24 Nail bed infection 42743038 Active Not Available Pending sale to [facility] 3 16:26:24 Notes:John Byrd MD [phone] Medical History: Mild OSAHS, AHI = 1, 10/10/22 Hypertriglyceridemia Atrial fibrillation Problem Notes None recorded. Procedures Surgical History None recorded. Imaging Results Imaging Date Name Status [facility]Modified by [facility] Details LastModified Time 10/10/2022 home sleep study completed [id number] [facility] [address] [place], [address], 12/04/2022 16:26:56 10/10/2022 home sleep study completed [id number] [facility] Orders [address] [place], [address], 12/04/2022 16:26:56 11/15/2022 MRI, brain, w/wo contrast completed [id number] [facility] (Imaging) [address] [place], [address], 12/04/2022 16:26:56 11/15/2022 MRI, internal auditory canal, w/wo contrast completed [id number] [facility] (Imaging) [address] [place], [address], 12/04/2022 16:26:56 Procedure Notes None recorded. Medical Equipment None Reported. Allergies No known drug allergies Medications Name Sig Start Date Stop Date Status Note LastModified by Organization Details LastModified Time cyclobenzapr ine 10 mg tablet 09/19 completed Not Available Not Available Not Available sulfamethoxa zole 400 mg-trimethop rim 80 mg tablet 09/19 completed Not Available Not Available Not Available prednisone 20 mg tablet 09/19 completed Not Available Not Available Not Available Tamiflu 75 mg capsule 03/22 completed Not Available Not Available Not Available amoxicillin 875 mg tablet 03/22 completed Not Available Not Available Not Available cephalexin 500 mg capsule Take 1 capsule 3 times a day by oral route. 09/19 completed Not Available Not Available Not Available naproxen sodium 550 mg tablet 09/19 completed Not Available Not Available Not Available aspirin 81 mg chewable tablet CHEW AND SWALLOW 1 TABLET BY MOUTH DAILY AT 8 AM active Not Available Not Available No t Available fluticasone propionate 50 mcg/actuatio n nasal spray,suspen claudio 09/19 completed Not Available Not Available Not Available DILT-XR 180 mg capsule, extended release TAKE 1 CAPSULE BY MOUTH EVERY MORNING active Not Available Not Available No t Available Vitals Date Recorded Body mass index (BMI) Body mass index (BMI) Body height Body height Heart rate Heart rate Body temperature Body temperature Body weight Body weight Systolic blood pressure Diastolic blood pressure Systolic blood pressure Diastolic blood pressure Provider Name and Address Organization Details Last Updated DateTime 3 27.3 kg/m2 27.3 kg/m2 180.34 cm 180.34 cm 78 /min 66 /min 97.9 [degF] 97.7 [degF] 38986.1 g 58692.1 g 138 mm[Hg] 84 mm[Hg] 130 mm[Hg] 82 mm[Hg] Not Available [facility] 3 16:26:19 Date Recorded Body height Body mass index (BMI) Body weight Body temperature Heart rate Systolic blood pressure Diastolic blood pressure Provider Name and Address Organization Details Last Updated DateTime 3 180.34 cm 26.9 kg/m2 14241.3 3 g 98.5 [degF] 79 /min 118 mm[Hg] 72 mm[Hg] [facility] 3 15:46:28 Social History Question Answer Notes LastModified by Organizat ion Details LastModified Time Tobacco Smoking Status Former Smoker 2002 Not Available Pending sale to [facility] 12/04/2022 16:25:55 Do You Have An Advance Directive? No [id number] Information not available 12/04/2022 What Is Your Level Of Alcohol Consumption? Occasional [id number] Information not available 12/04/2022 What Is Your Level Of Caffeine Consumption? Moderate [id number].31078 [id number] Information not available 12/04/2022 In The 14 Days Before Symptom Onset, Have You Had Close Contact With A Laboratory-confi rmed COVID-19 While That Case Was Ill? No [id number] Information not available 12/04/2022 In The 14 Days Before Symptom Onset, Have You Had Close Contact With A Person Who Is Under Investigation For COVID-19 While That Person Was Ill? No [id number] Information not available 12/04/2022 What Type Of Diet Are You Following? REGULAR [id number] [id number] Information not available 12/04/2022 What Is The Highest Grade Or Level Of School You Have Completed Or The Highest Degree You Have Received? 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 No [id number].90094 [id number] Information not available 12/04/2022 What Is The Fluoride Status Of Your Home? Unknown [id number] [id number] Information not available 12/04/2022 Where Do You Live? Single[place]House MIGRATION.[id number] Information not available 12/04/2022 Do You Have A Medical Power Of Orthotic/Prosthetic Practitioner? No [id number] [id number] Information not available 12/04/2022 What Was The Date Of Your Most Recent Tobacco Screening? 07/10/2023 [id number] Information not available 07/10/2023 Do You Have Any Pets? Yes [id number].16745 [id number] Information not available 12/04/2022 What Is Your Relationship Status? [id number].45441 91781 Information not available 12/04/2022 Do You Have Smoke And Carbon Monoxide Detectors In Your Home? Yes [id number] [id number] Information not available 12/04/2022 Are You Passively Exposed To Smoke? No MIGRATION.24275 [id number] Information not available 12/04/2022 Are There Any Smokers In Your House? No [id number].12866 90665 Information not available 12/04/2022 Do You Feel Stressed (tense, Restless, Nervous, Or Anxious, Or Unable To Sleep At Night)? [id number] MIGRATION.76444 [id number] Information not available 12/04/2022 Do You Use Any Illicit Or Recreational Drugs? No MIGRATION.19600 90210 Information not available 12/04/2022 Have You Recently Traveled Abroad? No [id number].62937 [id number] Information not available 12/04/2022 Do You Have Any Dietary Restrictions? No [id number].17942 88044 Information not available 12/04/2022 Do You Or Have You Ever Used Any Other Forms Of Tobacco Or Nicotine? No [id number] Information not available 12/04/2022 Sex: Male Functional Status Question Answer Note LastModified by Organizat ion Details LastModified Time What is your exercise level? Occasional [id number] Information not available 12/04/2022 Mental Status None recorded. Family History Relationship Description Onset Age of this Age Resolved Age Notes LastModified by Organization Details LastModified Time Maternal Grandfather Heart disease [id number] Not available 12/04/2022 16:25:57 Father Hypertensive disorder [id number] Not available 12/04/2022 16:25:57 Medical History Condition Response ATRIAL FIBRILLATION Y Immunizations Vaccine Type Date Status Note Provider Nam e and Address Organization Details Recorded Time COVID-19, mRNA, LNP-S, PF, 100 mcg/0.5mL dose or 50 mcg/0.25mL dose 09/26/2021 completed Not Available [facility] 16:26:55 COVID-19 vaccine, vector-nr, rS-Ad26, PF, 0.5 mL 12/20/2020 completed Not Available [facility] 16:26:55 Past Encounters Encounter ID Performer Location Encounter Start Date Encounter Closed Date Diagnosis/Indication Diagnosis SNOMED-CT Code Diagnosis ICD10 Code Diagnosis Note [id number] [facility] [place] [address] [facility] [place] [address] 09/19/2022 00:00:00 09/19/2022 21:42:49 [id number] [facility] [place] [address] [facility] , [place] [address] 11/05/2022 00:00:00 11/05/2022 21:25:33 [id number] Byrd MD [facility] [place] [address] [place] [address] , [place] [address] 07/10/2023 15:30:18 07/10/2023 16:37:14 Atrial fibrillation 39794001 I48.91 Health Concerns Section Related Observation LastModified by Organization Detai ls LastModified Time None Recorded Concern Status LastModified by Organization Details LastModified Time None Recorded Advance Directives Directive N: Payers Encounter Date Sequence Insurance Name Policy Number Policy Jordan Covered Member ID Jordan Member ID Guarantor Name 07/10/2023 1 [employer] [id number] U Narendra Shipley [id number] Narendra Shipley Notes Date Note Type Note Provider Name and Address Organization Details Recorded Time 07/10/2023 text/html Sometimes headache with exercise mitigated by hydration John Byrd MD [address] [place] [address], [place], [address], [facility] for; to (do[facility] [employer] 07/10/2023 21:28:22
--- NOTE | 2024-11-15 14:04 | ED_ITS ---
HPI - URI/Sore Throat General Chief Complaint: Upper Respiratory Infection Stated Complaint: sinus infection Time Seen by Provider: 11/15/24 14:04 Source: patient Mode of arrival: ambulatory Limitations: no limitations History of Present Illness HPI Narrative: 44-year-old male presents with complaint of nasal congestion, cough, fatigue, body aches, chills, fever x3 days. Patient concerns that he has a sinus in fection. Denies nausea vomiting diarrhea. All systems reviewed and negative except as noted above. Related Data Allergies Allergy/AdvReac Type Severity Reaction Status Date / Time No Known Allergies Allergy Verified 11/15/24 13:40 Review of Systems Review of Systems: CONSTITUTIONAL: reports fever, chills, or sweats. EYES: Denies visual changes, redness, or discharge. ENT: reports rhinorrhea, congestion. Denies sore throat, or otalgia. CARDIOVASCULAR: Denies chest pain, palpitations, or edema. RESPIRATORY: Reports cough. Denies dyspnea. GASTROINTESTINAL: Denies abdominal pain, nausea, vomiting, or diarrhea. GENITOURINARY: Denies dysuria or hematuria. SKIN: Denies rash or itching. MUSCULOSKELETAL: Denies back pain, joint pain, or myalgia. NEUROLOGIC: Denies headache, numbness, or weakness. PSYCHIATRIC: Denies anxiety or depression. All other systems reviewed are negative, except as documented in HPI. [facility] Past Medical History Medical History (Updated 11/15/24 @ 14:11 by Rosalia Ramirez NP) Elevated blood pressure reading Anxiety Surgical History Surgical History (Updated 01/22/22 @ 05:25 by Tiffanie Cordon DO) Benign skin mole Benign skin moles resected Family History Family History (Updated 01/22/22 @ 07:16 by Tiffanie Cordon DO) Father Hypertension TIA (transient ischemic attack) Social History Social History (Updated 01/22/22 @ 07:17 by Tiffanie Cordon DO) Social History: He lives with his of 18 years. They have 3 children. He drinks on occasion in moderation for the most part but once a month will drink heavier up to 6 date alcoholic beverages at a time. He smoked briefly for a couple of years in his early 20s. He denies any illicit substance use. He works in finance. Smoking packs per day: 0.5 Smoking cigarettes per day: 10.0 Years smoked: 2 Smoking pack-years: 1.00 Smoking status: Former smoker Tobacco type: cigarettes Alcohol intake: never Substance use: former Substance use type: marijuana Last use: 20 years ago Additional living arrangements comments: He lives at home with his . Spiritual care concerns: No Comments At time of signature, agree with nursing past medical, surgical, social and family history. There is no relevant family history pertinent to the presenting complaint. Exam Narrative: GENERAL: This is a well-nourished, well-developed patient, ill-appearing but no acute distress HEAD: normocephalic, atraumatic. EYES: PERRL. Sclera clear/white. Vision is grossly intact. EARS: External ears normal, auditory canals clear and without drainage, TMs normal without perforation. Hearing grossly intact. NOSE: External nose normal with congestion, clear nasal drainage, erythema to nares THROAT: Mucous membranes moist, erythema with postnasal drainage NECK: Neck supple, non-tender without lymphadenopathy, masses or thyromegaly. CARDIOVASCULAR: Regular rate and rhythm without murmurs, gallops, or rubs. RESPIRATORY: Clear to auscultation. Breath sounds equal bilaterally. No wheezes, rales, or rhonchi. SKIN: warm, Dry, intact with no suspicious lesions or rash, good texture and turgor. NEURO: awake, alert, and oriented to person, place and time. There were no obvious focal neurologic abnormalities. EXTREMITIES: No joint tenderness, effusion, or edema noted. Course Course Level of Care: Express Care Visit Vital Signs Vital signs: Vital Signs Temperature 36.4 C L 11/15/24 13:22 Pulse Rate 91 11/15/24 13:22 Respiratory Rate 18 11/15/24 13:22 Blood Pressure 137/83 11/15/24 13:22 Pulse Oximetry 98 11/15/24 13:22 Oxygen Delivery Room Air 11/15/24 13:22 Temperature 36.4 C L 11/15/24 13:22 Pulse Rate 91 11/15/24 13:22 Respiratory Rate 18 11/15/24 13:22 Blood Pressure 137/83 11/15/24 13:22 Pulse Oximetry 98 11/15/24 13:22 Oxygen Delivery Room Air 11/15/24 13:22 reviewed MDM - URI/Sore Throat MDM Narrative Medical decision making narrative: positive influenza. Patient is alert, nontoxic. Hemodynamically stable. Recommend [id number] medications to treat viral symptoms. Please be advised this is a medical document. It is intended for [id number] communication. It is written in medical language and may contain unfamiliar abbreviations or verbiage. Medical documents are intended to carry relevant information, facts as evident, and the clinical opinion of the practitioner at the time of the encounter. This report may have been done utilizing a voice recognition system. Attempts have been made to correct errors. However, there may be uncorrected grammatical, spelling, and recognition errors present. The file time of this note does not necessarily represent the time of service. Differential Diagnosis Differential diagnosis: Likely upper respiratory infection, sinusitis, viral infection and influenza Discharge Plan Discharge Clinical Impression: Influenza A Patient Disposition: Home, Self-Care Condition: Stable Instructions: Influenza (ED) Additional Instructions: you were positive for influenza today. Influenza is a virus and symptoms may last 10-14 days. Take [id number] medications to treat congestion such as pseudoephedrine. Take as directed on packaging. This medication is found behind the pharmacy counter. Take Tylenol or ibuprofen every 6-8 hours as needed for pain and fever. Drink at least 64 oz water a day. Follow-up with your primary care physician if symptoms are not improving. Patient Language: Ukrainian Prescriptions: No Action aspirin [Children's Aspirin] 81 mg Tablet,Chewable 81 mg PO DAILY@0800 Qty: 30 1RF diltiazem HCl 180 mg Capsule,Ext.Rel 24h Degradable 180 mg PO QAM Qty: 30 1RF Follow-up/Referrals: PHYSICIAN,ACOUSTIC ENGINEER [Primary Care Provider] - Stand Alone Forms: Work/School Release IP Time of Disposition: 14:11
[2024-11-15 14:06] LABS: EDCOVIDSCREEN Negative (Negative); EDINFLUASCREEN Positive (Negative); EDINFLUBSCREEN Negative (Negative)
== END 2024-11-15 14:17 | disposition home or self-care (01) ==
PROVIDERS: Emergency Provider Nurse Practitioner Family; Referring Provider Emergency Medicine
DX: J10.1 Influenza due to other identified influenza virus with other respiratory manifestations (principal); Z87.891 Personal history of nicotine dependence; Z20.822 Contact with and (suspected) exposure to COVID-19
CPT/HCPCS: 87426; 87804; 99212; G0463